=== PATIENT | male | born 1955 | race Two or more races ===

== ENCOUNTER 2021-01-08 09:25 | Outpatient (CLI) | payer OTHER | END 2021-01-08 23:59 | disposition home or self-care (01) | LOC: LAB 09:25 | PROVIDERS: ATTEND Specialist | DX: Z75.3 Unavailability and inaccessibility of health-care facilities (principal) ==

== ENCOUNTER 2021-01-09 14:40 | Outpatient (CLI) | payer OTHER | END 2021-01-09 23:59 | disposition home or self-care (01) | LOC: LAB 14:40 | PROVIDERS: ATTEND Specialist | DX: U07.1 COVID-19 (principal) | CPT/HCPCS: C9803; U0003 ==